=== PATIENT | female | born 1930 | race Caucasian/White ===

== ENCOUNTER 2017-05-28 10:19 | Outpatient (CLI) | payer MEDICARE, BC, OTHER ==
--- NOTE | 2017-05-28 15:22 | MRI ---
MRI CERVICAL SPINE WITH AND WITHOUT CONTRAST: Technique: Multiplanar, multisequential imaging of the cervical spine obtained. History: Neck pain. Prior surgery. Comparison: None. FINDINGS: There has been a prior fusion procedure. There is fusion at C5-6 and C6-7 vertebrae. There is a compr ession deformity involving the C3 vertebra. There is posterior subluxation of C4 on C5 measured at ap proximately 3 mm. There is an anterior subluxation of C7 on T1 measured at approximately 5-6 mm. There are anterior plate and screws at C3-4. No central canal stenosis at C2-3 or C3-4. At C4-5 the posterior subluxation abuts the anterior cord, however, there is no central canal stenosi s present. No evidence of central canal stenosis is seen through the fusion at C5-6 or C6-7. At C7-T1 the anterior subluxation is present with an associated disc bulge which impinges upon the an terior cord and does result in moderate central canal stenosis. I cannot exclude foraminal encroachme nt at this level. At T1-2 there is slight anterior subluxation with a broad based bulge and spondylosis abutting the an terior cord and resulting in mild central canal stenosis. The cord signal appears preserved. No myelomalacia is seen. No abnormal enhancement is identified. IMPRESSION: 1. Post-operative and degenerative changes of cervical spine as described above. 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 Subluxation at C4-5 and C7-T1 as described above. POS: [facility]
== END 2017-05-28 10:20 | disposition home or self-care (01) ==
LOC: TBSIIMAG 10:19
PROVIDERS: ATTEND Neurological Surgery
DX: M47.12 Other spondylosis with myelopathy, cervical region (principal); M48.02 Spinal stenosis, cervical region; S13.150A Subluxation of C4/C5 cervical vertebrae, initial encounter; S13.180A Subluxation of C7/T1 cervical vertebrae, initial encounter; Z98.890 Other specified postprocedural states
CPT/HCPCS: 72156; 82565